=== PATIENT | female | born 1975 | race African-American/Black ===

== ENCOUNTER 2017-05-02 18:46 | Emergency (ER) | payer OTHER ==
[~2017-05-02] VITALS: Ht 170.2 cm; Wt 77.3 kg
[2017-05-02] MEDS ORDERED: KETOROLAC TROMETHAMINE 30 MG/ML VIAL IM ONE (19:30)
[2017-05-02 19:41] VITALS: BP 134/78
== END 2017-05-02 20:02 | disposition home or self-care (01) ==
LOC: EMS 19:05
DX: M54.6 Pain in thoracic spine (principal); E11.9 Type 2 diabetes mellitus without complications; F12.90 Cannabis use, unspecified, uncomplicated
CPT/HCPCS: 81002; 81025; 96372; 99283; J1885

== ENCOUNTER 2018-05-02 21:43 | Emergency (ER) | payer OTHER ==
[~2018-05-02] VITALS: Ht 162.6 cm; Wt 81.8 kg
[~2018-05-02 21:43] MED LIST: BUPR-47 PO; BUPR-93 PO; SIMV-260 PO
[2018-05-02 22:18] LABS: GLUCOSE,POINT OF CARE 97 MG/DL (70-110)
[2018-05-03] MEDS ORDERED: HYDROCODONE/ACETAMINOPHEN 5-325 MG TABLET PO ONE
[2018-05-03] MEDS ORDERED: KETOROLAC TROMETHAMINE 30 MG/ML VIAL IVP ONE
[2018-05-03] MEDS ORDERED: METHOCARBAMOL 100 MG/ML 10 ML VIAL IVP ONE
[2018-05-03 00:19] LABS: BASOPHILS % (AUTO) 0.8 % (0.0-2.0); EOSINOPHILS % (AUTO) 4.4 % (1.0-6.0); HEMATOCRIT 37.9 % (36-46); HEMOGLOBIN 12.8 g/dL (12.0-16.0); LYMPHOCYTES % (AUTO) 26.3 % (22.0-44.0); MEAN CORPUSCULAR HEMOGLOBIN 31.6 pg (26.0-34.0); MEAN CORPUSCULAR HGB CONC 33.8 G/dL (31.0-37.0); MEAN CORPUSCULAR VOLUME 94 fL (80-100); MONOCYTES # (AUTO) 0.4 K/uL (0.1-1.0); MONOCYTES % (AUTO) 9.3 % (2.0-9.0); NEUTROPHILS # (AUTO) 2.3 K/uL (1.8-7.7); NEUTROPHILS % (AUTO) 59.2 % (40.0-70.0); PLATELET COUNT (AUTO) 230 K/uL (150-450); RED BLOOD CELL COUNT(AUTO) 4.05 MIL/uL (4.00-5.20); RED CELL DISTRIBUTION WIDTH 13.9 % (11.5-14.5)
[2018-05-03 00:26] LABS: ANION GAP 8 mmol/L (8-16); CALCIUM, TOTAL 8.6 mg/dL (8.8-10.5); CARBON DIOXIDE 28 mmol/L (22-29); CHLORIDE 103 mmol/L (98-107); CREATININE 1.26 mg/dL (0.60-1.30); GLOMERULAR FILTR. RATE CALC 56 mL/min (>60); GLUCOSE,RANDOM 108 mg/dL (70-110); POTASSIUM 3.9 mmol/L (3.5-5.1); SODIUM SERUM 139 mmol/L (136-145); UREA NITROGEN, BLOOD 17 mg/dL (7-18)
[2018-05-03 00:37] LABS: ALANINE AMINOTRANSFERASE 29 U/L (12-78); ALBUMIN 3.8 g/dL (3.4-5.0); ALKALINE PHOSPHATASE 86 U/L (46-116); ASPARTATE AMINOTRANSFERASE 24 U/L (15-37); BILIRUBIN,TOTAL 0.4 mg/dL (0.1-1.0); HCG,QUANTITATIVE < 1 mIU/mL (0-6); LIPASE 184 U/L (73-393); TOTAL PROTEIN, SERUM 8.1 g/dL (6.4-8.2)
[2018-05-03 02:06] VITALS: BP 135/77
== END 2018-05-03 02:09 | disposition home or self-care (01) ==
LOC: EMS 21:44
DX: M54.42 Lumbago with sciatica, left side (principal); E11.9 Type 2 diabetes mellitus without complications; F32.9 Major depressive disorder, single episode, unspecified; F12.90 Cannabis use, unspecified, uncomplicated
CPT/HCPCS: 36415; 72100; 80053; 82962; 83690; 84702; 85025; 96374; 96375; 99284; J1885; J2800

== ENCOUNTER 2018-08-01 10:33 | Emergency (ER) | payer SELFPAY ==
[~2018-08-01] VITALS: Ht 162.6 cm; Wt 81.8 kg
[2018-08-01 11:40] VITALS: BP 128/87
== END 2018-08-01 11:52 | disposition home or self-care (01) ==
LOC: EMS 10:34
DX: M77.9 Enthesopathy, unspecified (principal); R03.0 Elevated blood-pressure reading, without diagnosis of hypertension; E11.9 Type 2 diabetes mellitus without complications; F32.9 Major depressive disorder, single episode, unspecified; F12.90 Cannabis use, unspecified, uncomplicated

== ENCOUNTER 2019-04-16 14:09 | Emergency (ER) | payer BC ==
[~2019-04-16] VITALS: Ht 162.6 cm; Wt 80.5 kg
[2019-04-16] MEDS ORDERED: KETOROLAC TROMETHAMINE 60 MG/2 ML VIAL IM ONE (16:00)
[2019-04-16] MEDS ORDERED: LIDOCAINE 5% TRANSDERMAL PATCH TD ONE (16:00)
[2019-04-16 16:56] VITALS: BP 104/59
== END 2019-04-16 17:11 | disposition home or self-care (01) ==
LOC: EMS 14:10
DX: M54.5 Low back pain (principal); M25.552 Pain in left hip; F32.9 Major depressive disorder, single episode, unspecified; E11.9 Type 2 diabetes mellitus without complications; F17.200 Nicotine dependence, unspecified, uncomplicated; F12.90 Cannabis use, unspecified, uncomplicated
CPT/HCPCS: 72110; 73503; 81025; 96372; 99283; J1885

== ENCOUNTER 2020-03-10 07:17 | Emergency (ER) | payer BC ==
[~2020-03-10] VITALS: Ht 167.6 cm; Wt 77.3 kg
[2020-03-10 07:19] VITALS: BP 140/92
[2020-03-10] MEDS ORDERED: METHOCARBAMOL 500 MG TABLET PO ONE (08:00)
[2020-03-10] MEDS ORDERED: NAPROXEN 250 MG TABLET PO ONE (08:00)
== END 2020-03-10 08:50 | disposition home or self-care (01) ==
LOC: EMS 07:19
DX: S39.012A Strain of muscle, fascia and tendon of lower back, initial encounter (principal); F32.9 Major depressive disorder, single episode, unspecified; E11.9 Type 2 diabetes mellitus without complications; F17.200 Nicotine dependence, unspecified, uncomplicated; F12.90 Cannabis use, unspecified, uncomplicated; X50.0XXA Overexertion from strenuous movement or load, initial encounter; Y93.89 Activity, other specified; Y92.89 Other specified places as the place of occurrence of the external cause; Y99.8 Other external cause status

== ENCOUNTER 2020-11-26 16:49 | Emergency (ER) | payer BC ==
[~2020-11-26] VITALS: Ht 162.6 cm; Wt 81.8 kg
[2020-11-26] MEDS ORDERED: CYCLOBENZAPRINE HCL 10 MG TABLET PO ONE (17:45)
[2020-11-26 18:37] VITALS: BP 150/85
== END 2020-11-26 19:05 | disposition home or self-care (01) ==
LOC: EMS 16:49
DX: M47.812 Spondylosis without myelopathy or radiculopathy, cervical region (principal); F12.90 Cannabis use, unspecified, uncomplicated
CPT/HCPCS: 72040; 93005; 99283